=== PATIENT | male | born 1985 | race Caucasian/White ===

== ENCOUNTER 2019-08-16 20:36 | Emergency (ER) | payer SELFPAY ==
[2019-08-16 20:45] VITALS: BP 140/83; PULSE 118; TEMP 98.2; BMI 35.1
--- NOTE | 2019-08-16 21:52 | PDOC ---
History of Present Illness - General Chief Complaint: Injury Stated Complaint: L RING FINGER INJURY Time Seen by Provider: 08/16/19 21:31 - History of Present Illness Initial Comments: 08/16/19 21:50 34-year-old male presents for left fourth finger pain after falling on an outstretched finger today. No head injury only fourth finger pain over the DIPJ Past History - Past Medical History Allergies/Adverse Reactions: Allergies Allergy/AdvReac Type Severity Reaction Status Date / Time No Known Allergies Allergy Verified 08/16/19 20:44 COPD: No - Psycho Social/Smoking Cessation Hx Smoking History: Current every day smoker Number of Cigarettes Smoked Daily: 2 Information on smoking cessation initiated: No Review of Systems - Review of Systems Musculoskeletal: Yes: Joint Pain *Physical Exam - Vital Signs Last Vital Signs Temp Pulse Resp BP Pulse Ox 98.2 F 118 H 19 140/83 96 08/16/19 20:42 08/16/19 20:42 08/16/19 20:42 08/16/19 20:42 08/16/19 20:42 - Physical Exam 08/16/19 21:50 DIPJ of the left fourth finger is held in flexion and at about 30 degrees there is no active extension tenderness over the dorsum of the DIPJ. Neurovascularly intact with gross extension lag ED Treatment Course - RADIOLOGY Radiology Studies Ordered: Category Date Time Status FINGER(S) LEFT [RAD] Stat Radiology 08/16/19 21:37 Taken Medical Decision Making - Medical Decision Making 08/16/19 21:51 No acute fracture on radiograph of the left fourth finger. This is a soft tissue mallet injury splint 26/02 follow-up with hand surgery discussed the use of the splint Discharge - Discharge Information Problems reviewed: Yes Clinical Impression/Diagnosis: Mallet finger Condition: Stable Disposition: HOME - Admission No - Follow up/Referral Referrals: Ric Bateman MD [Staff Physician] - - Patient Discharge Instructions Patient Printed Discharge Instructions: Mallet Finger, DI for Mallet Finger, Finger Extensor Tendon Injury, DI for Finger Extensor Tendon Injury Additional Instructions: Please keep the splint on 24 hours a day 7 days a week and without fail follow- up with orthopedic hand surgery in 2 to 3 days for further evaluation and treatment options. Tylenol and Motrin as directed for pain. Return to the emergency room for further issues. - Post Discharge Activity
== END 2019-08-16 22:01 | disposition home or self-care (01) ==
LOC: JERFT 20:36
PROC: 2W3KX1Z Immobilization of Left Finger using Splint (ICD-10-PCS; principal; 2019-08-16)
DX: M20.012 Mallet finger of left finger(s) (principal); W18.39XA Other fall on same level, initial encounter; Y93.89 Activity, other specified; Y92.89 Other specified places as the place of occurrence of the external cause; Y99.8 Other external cause status
CPT/HCPCS: 73140-TC-LT-FY; 99281-25

== ENCOUNTER 2020-09-09 15:03 | Emergency (ER) | payer SELFPAY ==
[2020-09-09 15:35] VITALS: BP 135/65; PULSE 44; TEMP 97.9; BMI 31.8
[2020-09-09] MEDS ORDERED: MAG HYDROX/AL HYDROX/SIMETH 30 ML UNIT-DOSE CUP PO ONE (16:01)
[2020-09-09] MEDS ORDERED: DICYCLOMINE HCL 20 MG TABLET PO ONE (16:01)
[2020-09-09] MEDS ORDERED: POLYETHYLENE GLYCOL 3350 119 GM BTL PO ONE (16:01)
[2020-09-09] MEDS ORDERED: MAG HYDROX/AL HYDROX/SIMETH 30 ML UNIT-DOSE CUP ONE (17:23)
[2020-09-09] MEDS ORDERED: DICYCLOMINE HCL 10 MG CAPSULE ONE (17:23)
[2020-09-09 17:55] LABS: BASO % 0.8 % (0-2.0); EOS % 3.4 % (0-4.5); HEMATOCRIT 40.6 % (35.4-49); HEMOGLOBIN 13.7 GM/dL (11.7-16.9); LYMPH % 35.3 % (8-40); MCH 30.7 pg (25.7-33.7); MCHC 33.6 g/dl (32.0-35.9); MEAN CELL VOLUME 91.2 fl (80-96); MEAN PLT VOLUME 8.5 fl (7.5-11.1); MONO % 7.8 % (3.8-10.2); NEUT % 52.7 % (42.8-82.8); PLATELET COUNT 297 K/MM3 (134-434); RBC 4.46 M/mm3 (4.00-5.60); RDW 13.8 % (11.9-15.9); WHITE BLOOD COUNT 8.4 K/mm3 (4.0-10.0)
[2020-09-09 18:01] LABS: PH,URINE 5.5 (5.0-8.0); URINE APPEARANCE CLEAR; URINE BILIRUBIN NEGATIVE (NEGATIVE); URINE COLOR YELLOW; URINE GLUCOSE (UA) NEGATIVE (NEGATIVE); URINE KETONE NEGATIVE (NEGATIVE); URINE LEUK ESTERASE NEGATIVE (NEGATIVE); URINE NITRITE NEGATIVE (NEGATIVE); URINE PROTEIN NEGATIVE (NEGATIVE); URINE UROBILINOGEN 0.2 mg/dL (0.2-1.0)
[2020-09-09 18:24] LABS: POTASSIUM 4.1 mmol/L (3.5-5.1)
[2020-09-09 18:26] LABS: ALBUMIN 3.8 g/dl (3.4-5.0); BLOOD UREA NITROGEN 16.4 mg/dL (7-18); CALCIUM 8.4 mg/dL (8.5-10.1)
[2020-09-09 18:29] LABS: CREATININE 0.7 mg/dL (0.55-1.3)
[2020-09-09 18:31] LABS: BILIRUBIN,TOTAL 0.3 mg/dL (0.2-1); TOT PROT 7.2 g/dl (6.4-8.2)
== END 2020-09-09 18:42 | disposition home or self-care (01) ==
LOC: JER 15:03
DX: K59.00 Constipation, unspecified (principal); R10.9 Unspecified abdominal pain
CPT/HCPCS: 36415; 74019-TC-FY; 76700-TC; 80053; 81003; 83690; 85025; 87086; 93005; 93010; 99285-25